=== PATIENT | female | born 1955 | race Caucasian/White ===

== ENCOUNTER 2023-10-15 19:16 | Observation (INO) ==
[2023-10-15 19:58] LABS: ABS Eosinophils 0.2 10^3/uL (0.0-0.5); ABS Lymphocytes 2.4 10^3/uL (1.0-4.8); ABS Monocytes 0.6 10^3/uL (0.0-0.9); ABS Neutrophils 3.5 10^3/uL (1.5-7.6); ABS Nucleated RBC 0.01 10^3/ul; Eosinophil % 2.6 %; Hematocrit 40.8 % (35-45); Lymphocyte % 35.2 %; Mean Corpuscular Hemoglobin 31.6 pg (27-33); Mean Corpuscular Hgb Conc 34.4 g/dL (31-36); Mean Corpuscular Volume 91.8 fL (80-97); Mean Platelet Volume 9.4 fL (7.5-11.2); Nucleated Red Blood Cells % 0.2 %/100WBC (0.0-0.8); Platelet Count 267 10^3/uL (150-450); Red Blood Count 4.45 10^6/uL (3.63-4.92); Red Cell Distribution Width 12.5 % (12-17); White Blood Count 6.7 10^3/uL (3.8-11.8)
[2023-10-15 20:47] LABS: Albumin 4.8 g/dL (3.2-5.2); Albumin/Globulin Ratio 1.8 (1-3); Calcium 10.3 mg/dL (8.6-10.3); Creatinine, Serum 1.07 mg/dL (0.51-0.95); Globulin 2.6 g/dL (2-4); Potassium 4.2 mmol/L (3.5-5.0); Total Bilirubin 0.8 mg/dL (0.2-1.0); Total Protein 7.4 g/dL (6.4-8.9); eGFR CKD-EPI 56.6 (>60)
[2023-10-15] MEDS: Iodixanol (CONTRAST) 320 MG/ML 100 ML SDV IV ONE (23:15)
[2023-10-15 23:18] LABS: HDL Cholesterol 64.9 mg/dL
[2023-10-16] MEDS: Enoxaparin 40 MG/0.4 ML SYR SUBCUT SCH (00:36)
[2023-10-16] MEDS: Senna TAB 8.6 mg TAB PO PRN (21:39)
[2023-10-17 06:38] LABS: Calcium 9.5 mg/dL (8.6-10.3); Creatinine, Serum 1.13 mg/dL (0.51-0.95); Magnesium 2.2 mg/dL (1.9-2.7); Potassium 4.4 mmol/L (3.5-5.0)
[2023-10-17] MEDS: Polyethylene Glycol 3350 17 GM PACKET PO PRN (08:42)
[2023-10-17 14:36] VITALS: BP 116/81
== END 2023-10-17 18:15 | disposition home or self-care (01) ==
LOC: EDHOLD 19:16 → ED 19:16 → SUATTDRO 22:38 → MEDTELE 10-16 12:51
PROVIDERS: ADMIT Student in an Organized Health Care Education/Training Program; ATTEND Internal Medicine